=== PATIENT | male | born 1950 | race African-American/Black ===

== ENCOUNTER 2020-09-20 20:58 | Emergency (ER) | payer MEDICARE, SELFPAY ==
[2020-09-20] VITALS (10 sets, daily range): BP systolic 117–135; BP diastolic 61–84; PULSE 59–73; RESP 12–20; TEMP 37.9; O2SAT 99–100
--- NOTE | ~2020-09-20 | CT_ITS ---
EXAMINATION: CT brain wo con DATE: 09/20/2020 22:27 INDICATION: Weakness. TECHNIQUE: Computed tomography (CT) of the head was performed without intravenous contrast. The mA wa s adjusted according to patient size. Iterative reconstruction technique was employed. The dose-lengt h product was 605.33 mGy-cm. COMPARISON: Head CT 11/01/2016 FINDINGS: There is no intracranial hemorrhage, acute infarction, or abnormal intracranial mass lesion . The ventricles are normal in size. There is an old blowout fracture medial wall of left orbit. Ther e is mild mucosal thickening in the paranasal sinuses. The mastoid air cells are normal. IMPRESSION: 1. Normal brain. Reviewed, dictated and finalized at location B. MANAGER IMPRESSION: 1. Normal brain.
--- NOTE | ~2020-09-20 | XR_ITS ---
EXAMINATION: XR chest 2V EXAM DATE: 09/20/2020 22:06 INDICATION: Dizziness. Weakness. Smoking. TECHNIQUE: Frontal and lateral projections of the chest obtained and reviewed. There is no prior charlene dy for comparison. FINDINGS: Moderate chronic hyperinflation. The lungs are clear. There are no pleural effusions. Th e cardiomediastinal silhouette is within normal limits. There is no pneumothorax suspected. The bon es and soft tissues are unremarkable. IMPRESSION: No acute cardiopulmonary findings. Reviewed, dictated and finalized at location A. E MAKER
--- NOTE | ~2020-09-20 | CT_ITS ---
EXAMINATION:CT chest wo con DATE: 09/20/2020 22:27 INDICATION: Cough. Dizziness. TECHNIQUE: Computed tomography (CT) of the chest was performed without intravenous contrast. Automate d exposure control and iterative reconstruction technique were employed. The dose-length product (DLP ) was 142.75 mGy-cm. COMPARISON: Chest 2 views 09/20/2020 FINDINGS: There are mild patchy groundglass opacities in all lobes with a peripheral predominance. Th ere are nodules in right lower lobe measuring up to 9 mm. No pleural effusion. The heart size is norm al. There are coronary artery calcifications. No pericardial effusion. 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 There is mild mediastinal and hilar lymphadenopathy. There is mild thoracic spondylosis. IMPRESSION: 1. Multifocal lung disease, likely pneumonia. 2. Mild mediastinal and hilar lymphadenopathy, likely reactive. Reviewed, dictated and finalized at location B. Y NUTRITIONIST
--- NOTE | 2020-09-20 21:07 | ECG_ITS ---
Measurements Intervals [place] Rate: 64 P: [place]: 0 QRS: 50 QRSD: 86 T: 71 QT: 386 QTc: 399 Interpretive Statements SINUS OR ECTOPIC ATRIAL RHYTHM BASELINE ARTIFACT- I, II, III, AVR, AVL, AVF, V1-V3 BORDERLINE ECG Electronically Signed On 09-21-2020 8:43:07 DRAMATIC CRITIC by Crescencio Crouch D.O.
--- NOTE | 2020-09-20 21:20 | ED.WEAKNESS ---
HPI - Weakness General Chief complaint: Weakness Stated complaint: feeling bad, no appetite [id number] Time Seen by Provider: 09/20/20 21:09 Source: patient Mode of arrival: ambulatory Limitations: no limitations History of Present Illness HPI Narrative: Patient complaining of generalized weakness and loss of appetite accompanied by dizziness x6 weeks. Patient states that he has had 6 weeks ago and since then he has been feeling dizzy, weak and loss of appetite. Patient denies any speech or visual disturbance, focal weakness, numbness or unsteady gait. Patient denies any neck pain, chest pain, shortness of breath, abdominal pain, back pain or any extremity pain. Patient denies any nausea vomiting diarrhea or fever. Patient has no other complaints. Review of Systems Review of Systems: All systems reviewed & are unremarkable except as noted in HPI and below Constitutional: Constitutional: Denies body ache(s), Denies chills, Denies excessive sweating, Denies fatigue, Denies fever(s), Denies headache(s), Denies lethargy, Denies malaise and Denies weight loss Eyes: Eyes: Denies blurry vision, Denies change in vision and Denies loss of vision ENT: Denies dizziness, Denies ear discharge, Denies headache(s), Denies lip swelling, Denies epistaxis, Denies nasal congestion, Denies neck pain, Denies throat swelling and Denies tongue swelling Cardiovascular: Cardiovascular: Denies chest pain, Denies chest pain at rest, Denies chest pain with activity, Denies diaphoresis, Denies rapid heart rate, Denies edema, Denies irregular heart rhythm, Denies lightheadedness, Denies palpitations, Denies dyspnea and Denies dyspnea on exertion Respiratory: Respiratory: Denies chest congestion, Denies cough, Denies hemoptysis, Denies dyspnea and Denies dyspnea on exertion Gastrointestinal: Gastrointestinal: Denies abdominal pain, Denies melena, Denies hematochezia, Denies diarrhea, Denies nausea, Denies vomiting and Denies hematemesis Musculoskeletal: Musculoskeletal: Denies abnormal gait, Denies deformity, Denies joint swelling, Denies limited range of motion, Denies neck pain and Denies numbness Neurologic: Denies Abnormal speech present, Denies abnormal gait, Denies confusion, Denies dizziness, Denies headache(s), Denies focal weakness, Denies loss of vision, Denies numbness, Denies Other visual disturbances and Denies Sensory deficit (Neuro) Psychiatric: Psychiatric: Denies confusion, Denies depression, Denies auditory hallucinations, Denies homicidal ideation and Denies suicidal ideation Endocrine: Endocrine: Denies cold intolerance, Denies excessive sweating, Denies fatigue, Denies heat intolerance and Denies palpitations Hematologic/Lymphatic: Hematologic/Lymphatic: Denies easy bleeding and Denies easy bruising Allergic/Immunologic: Allergic/Immunologic: Denies lip swelling, Denies throat swelling and Denies tongue swelling Exam Const: General: cooperative, healthy appearing, comfortable, no acute distress, well developed, alert and awake; No confusion Orientation/consciousness: oriented to person, oriented to place, oriented to time, patient oriented x3 and No confusion Limitations: no limitations HENMT: Head: normal to inspection, normocephalic and atraumatic Ears: hearing grossly normal bilaterally, TM normal on the right and TM normal on the left General nose exam: Normal external nose present, Normal nares present and No nasal discharge present Face and sinus: normal facial exam Mouth: Yes Normal oral and palatal mucosa present, Yes lip normal, Yes tongue normal and Yes oropharynx normal Throat: posterior oropharynx normal, tonsils normal and uvula midline Eyes: General: appearance normal, both eyes and all related structures Pupils: Equal, round and reactive pupils present EOM: EOMs intact bilaterally Neck: Neck: normal visual inspection, full ROM, no lymphadenopathy and no meningeal signs Chest: Chest palpation & inspection: normal inspection of the
[2020-09-20 21:22] LABS: Glucose Point of Care 136 (65-105)
[2020-09-20] MEDS: SODIUM CHLORIDE 0.9% IV 1,000 ML 999 ML IV CONT (21:24)
[2020-09-20 21:48] LABS: Basophils Percent Auto 0.3 % (0.2-1.2); Eosinophils Percent Auto 0.3 % (0-4.4); Hematocrit 38.5 % (42.0-52.0); Hemoglobin 13.4 g/dL (14.0-18.0); Immature Granulocyte Absolute 0.01 K/mm3 (0.00-0.031); Immature Granulocyte Percent A 0.3 % (0-0.5); Lymphocytes Percent Auto 32.5 % (18.3-44.2); Mean Corpuscular HGB Conc 34.8 g/dl (32-36); Mean Corpuscular Hemoglobin 31.2 pg (26-34); Mean Corpuscular Volume 89.7 fl (80-100); Mean Platelet Volume 11.9 fl (7.4-10.4); Monocytes Absolute Auto 0.2 K/mm3 (0.1-0.6); Neutrophils Absolute Auto 2.2 K/mm3 (1.3-6.7); Neutrophils Percent Auto 60.6 % (45.5-73.1); Platelet Count Result 145 k/mm3 (150-375); Red Blood Count 4.29 M/mm3 (4.6-6.20); Red Cell Distribution Width 12.3 % (11.5-14.5); White Blood Count 3.7 K/mm3 (4.5-10.0)
[2020-09-20 21:49] LABS: Alanine Aminotransferase 32 U/L (4-50); Albumin Level 3.8 g/dL (3.5-5.1); Alkaline Phosphatase 49 U/L (38-126); Anion Gap 5 mmol/L (8-16); Aspartate Amino Transferase 50 U/L (17-59); Bilirubin,Total 1.1 mg/dL (0.2-1.3); Blood Urea Nitrogen 18 mg/dL (9-20); Calcium 9.8 mg/dL (8.4-10.2); Carbon Dioxide 30 mmol/L (22-30); Chloride 101 mmol/L (98-107); Estimated CRCL calculation 53 ml/min; Estimated Glomerular Filt Rate > 60; Glucose 122 mg/dL (75-110); Potassium 3.9 mmol/L (3.4-5.0); Sodium 136 mmol/L (137-145)
[2020-09-20 21:58] LABS: Atypical Lymphocytes Present
[2020-09-20 21:59] LABS: Platelet Estimate Adequate (Adequate)
[2020-09-20 22:33] LABS: Add Urine Microscopic? YES; Appearance Urine Clear (Clear); Bacteria Urine Trace /hpf; Bilirubin Urine Negative (Negative); Blood Urine Negative (Negative); Color Urine Yellow (Yellow); Glucose Urine UA Negative (Negative); Ketones Urine Trace mg/dL (Negative); Leukocyte Esterase Ur Negative LEU/UL (Negative); Mucus Urine Rare /lpf; Nitrate Urine Negative (Negative); Protein Urine 1+ mg/dL (Negative); RBC Urine 0-2 /hpf (0-2); Specific Grav Ur 1.021 (1.001-1.035); WBC Urine 0-3 /hpf
[2020-09-21 00:32] VITALS: BP 117/87; PULSE 68; RESP 19; TEMP 37.6; O2SAT 100
== END 2020-09-21 00:46 | disposition home or self-care (01) ==
PROVIDERS: Emergency Medicine; Emergency Provider Emergency Medicine
DX: U07.1 COVID-19 (principal); J12.89 Other viral pneumonia; R53.1 Weakness
CPT/HCPCS: 36415; 70450; 71046; 71250; 80053; 81001; 82948; 85025; 93005; 96361; 96365; 96367; 99284; J0456; J0696; J7030